=== PATIENT | female | born 1990 | race Caucasian/White ===

== ENCOUNTER 2016-11-06 22:19 | Emergency (ER) | payer OTHER ==
[~2016-11-06] VITALS: Ht 157.5 cm; Wt 54.5 kg
[2016-11-06 22:46] VITALS: Ht 157.5 cm; Wt 54.5 kg
[2016-11-07 00:29] LABS: URINE BLOOD (Dip) POC Trace-intact (NEGATIVE)
[2016-11-07] MEDS ORDERED: NITR-58 PO (00:50)
--- NOTE | 2016-11-07 00:52 | ERD ---
ER Documentation Chief Complaint Date/Time DATE: 11/07/16 TIME: 00:51 Chief Complaint PAINFUL URINATION THAT STARTED TODAY. HPI Patient is 26-year-old female who presents emergency department with painful urination which started today. Patient reports urinary frequency and urgency. Patient denies any hematuria. Patient denies any fever, chills, nausea, vomiting, abdominal pain, flank pain, back pain or loss of consciousness. She states her last menstrual period was 1 week ago. Patient denies any vaginal bleeding or vaginal discharge. ROS All systems reviewed and are negative except as per history of present illness. Medications Home Meds Active Scripts Nitrofurantoin Monohyd Macrocr* (Macrobid*) 100 Mg Capsr, 100 MG PO BID for 5 Days, CAP Prov:MELANIE WALKER PA-C 11/07/16 Allergies Allergies: Coded Allergies: fluconazole (Verified Allergy, Unknown, 11/06/16) sulfamethoxazole (Verified Allergy, Unknown, 11/06/16) trimethoprim (Verified Allergy, Unknown, 11/06/16) Uncoded Allergies: SULFA (Allergy, Unknown, 11/06/16) PMhx/Soc Medical and Surgical Hx: pt denies Surgical Hx Hx Miscellaneous Medical Probl: Yes (UTIs) Hx Alcohol Use: No Hx Substance Use: No Hx Tobacco Use: No Smoking Status: Never smoker FmHx Family History: No diabetes Physical Exam Vitals Vital Signs Date Time Temp Pulse Resp B/P Pulse Ox O2 Delivery O2 Flow Rate FiO2 11/07/16 02:05 98.2 77 17 119/65 100 Room Air 11/06/16 22:46 98.2 70 18 121/69 100 Physical Exam GENERAL: Well-developed, well-nourished female. Appears in no acute distress. HEAD: Normocephalic, atraumatic. EYES: Pupils are equally reactive bilaterally. EOMs grossly intact. No conjunctival erythema. ENT: Moist mucous membranes. No uvula deviation. No kissing tonsils. NECK: Supple. No meningismus. Normal range of motion of the neck. LUNG: Clear to auscultation bilaterally. No rhonchi, wheezing, rales or coarse breath sounds. HEART: Regular rate and rhythm. No murmurs, rubs or gallops. ABDOMEN: No scars, ecchymosis or rashes noted. Soft, nontender, and nondistended. Positive bowel sounds in all four quadrants. No rebound tenderness , no guarding. (-) McBurney's point tenderness. No CVA tenderness. EXTREMITIES: Equal pulses bilaterally. No peripheral clubbing, cyanosis or edema. No unilateral leg swelling. NEUROLOGIC: Alert and oriented. Moving all four extremities without any difficulty. Normal speech. Steady gait. SKIN: Normal color. Warm and dry. No rashes or lesions. Results 24 hrs Laboratory Tests Test 11/07/16 00:32 Bedside Urine Blood Trace-intact Bedside Urine Glucose (UA) Negative Bedside Urine Ketones (LAB) Negative Bedside Urine Leukocyte Esterase (L 1+ Bedside Urine Nitrite (LAB) Negative Bedside Urine Protein (LAB) Negative Bedside Urine pH (LAB) 6.5 Procedures/MDM MEDICAL DECISION MAKING: This is a 18-year-old female who presents with painful urination x 1 day. Patient also reports frequency and urgency. Vital signs were reviewed. Patient was afebrile. Dip showed positive leukocyte esterase urine was negative. Given these findings, the patient's presentation is most consistent with urinary tract infection. I have a much lower clinical concern for pyelonephritis, nephrolithiasis, appendicitis, diverticulitis, constipation, , ectopic , PID, ovarian torsion. PRESCRIPTIONS: Macrobid DISCHARGE: At this time, patient is stable for discharge and outpatient management. I have instructed the patient to follow-up with his/her primary care physician in 1-2 days. Patient should repeat UA in 2 weeks to check for resolution of urinary tract infection. If symptoms persist, patient may need to see a specialist for further examinations and testing. I have instructed the patient to promptly return to the ER at any time for any new or worsening symptoms including increased pain, fever, nausea, vomiting, urinary changes or weakness. The patient and/or family expressed understanding of and agreement with this plan. All questions were answered. Home care instructions were provided. Departure Diagnosis: Primary Impression: UTI (urinary tract infection) Urinary tract infection type: site unspecified Hematuria presence: without hematuria Qualified Code: N39.0 - Urinary tract infection without hematuria, site unspecified Condition: Stable Patient Instructions: Understanding Urinary Tract Infections (UTIs) Referrals: [facility] YOU HAVE RECEIVED A MEDICAL SCREENING EXAM AND THE RESULTS INDICATE THAT YOU DO NOT HAVE A CONDITION THAT REQUIRES URGENT TREATMENT IN THE EMERGENCY DEPARTMENT. FURTHER EVALUATION AND TREATMENT OF YOUR CONDITION CAN WAIT UNTIL YOU ARE SEEN IN YOUR DOCTORS OFFICE WITHIN THE NEXT 1-2 DAYS. IT IS YOUR RESPONSIBILITY TO MAKE AN APPOINTMENT FOR FOLOW-UP CARE. IF YOU HAVE A PRIMARY DOCTOR --you should call your primary doctor and schedule an appointment IF YOU DO NOT HAVE A PRIMARY DOCTOR YOU CAN CALL OUR PHYSICIAN REFERRAL HOTLINE AT IF YOU CAN NOT AFFORD TO SEE A PHYSICIAN YOU CAN CHOSE FROM THE FOLLOWING [facility] [address] [facility] [address] [facility] [address] [facility] [address] [facility] [address] [facility]. [facility] [address] [facility]. [facility] YOU HAVE RECEIVED A MEDICAL SCREENING EXAM AND THE RESULTS INDICATE THAT YOU DO NOT HAVE A CONDITION THAT REQUIRES URGENT TREATMENT IN THE EMERGENCY DEPARTMENT. FURTHER EVALUATION AND TREATMENT OF YOUR CONDITION CAN WAIT UNTIL YOU ARE SEEN IN YOUR DOCTORS OFFICE WITHIN THE NEXT 1-2 DAYS. IT IS YOUR RESPONSIBILITY TO MAKE AN APPOINTMENT FOR FOLOW-UP CARE. IF YOU HAVE A PRIMARY DOCTOR --you should call your primary doctor and schedule and appointment IF YOU DO NOT HAVE A PRIMARY DOCTOR YOU CAN CALL OUR PHYSICIAN REFERRAL HOTLINE AT . IF YOU CAN NOT AFFORD TO SEE A PHYSICIAN YOU CAN CHOSE FROM THE FOLLOWING [facility]: [facility] [address] [place] [address] [facility] [address] [place] [address] [facility] [address] [place] [address] Additional Instructions: Call your primary care doctor TOMORROW for an appointment during the next 1-2 days.See the doctor sooner or return here if your condition worsens before your appointment time. MELANIE WALKER PA-C Nov 07, 2016 00:52
[2016-11-07 02:05] VITALS: BP 119/65; PULSE 77; RESP 17; TEMP 98.2
== END 2016-11-07 02:06 | disposition home or self-care (01) ==
LOC: FTE 22:19
DX: N39.0 Urinary tract infection, site not specified (principal)
CPT/HCPCS: 81003; Z7502; 99283